=== PATIENT | female | born 1950 | race Two or more races ===

== ENCOUNTER 2023-09-30 09:30 | Inpatient (IN) | payer OTHER ==
[~2023-09-30] VITALS: Ht 162.6 cm; Wt 70.8 kg
[2023-09-30] MEDS ORDERED: SYNTHROID88 MCG PO (15:07)
[2023-09-30] MEDS ORDERED: GLIMEPIRIDE4 MG (15:08)
[2023-09-30] MEDS ORDERED: CITALOPRAM20 MG/10 M PO (15:09)
[2023-09-30] MEDS ORDERED: FENOFIBRATE160 MG PO (15:10)
[2023-10-07] MEDS ORDERED: SIMVASTATIN10 MG (08:32)
[2023-10-07] MEDS ORDERED: LISINOPRIL2.5 MG (08:32)
[2023-10-07 18:26] LABS: HEMATOCRIT 38.6 % (36.0-45.00); HEMOGLOBIN 12.7 g/dL (12.0-15.00); MEAN CELL VOLUME 85.3 fL (80.00-100.00); MEAN CORPUSCULAR HGB CONC 32.8 g/dl (32.0-36.0); PLATELET COUNT 275 K/uL (150-450); RED BLOOD COUNT 4.53 M/uL (4.00-6.00); RED CELL DISTRIBUTION WIDTH 12.9 % (11.5-14.5)
[2023-10-08 08:27] LABS: HEMATOCRIT 36.5 % (36.0-45.00); HEMOGLOBIN 12.1 g/dL (12.0-15.00); MEAN CELL VOLUME 86.9 fL (80.00-100.00); MEAN CORPUSCULAR HEMOGLOBIN 28.8 pg (27.00-32.0); MEAN CORPUSCULAR HGB CONC 33.2 g/dl (32.0-36.0); PLATELET COUNT 240 K/uL (150-450); RED BLOOD COUNT 4.21 M/uL (4.00-6.00); RED CELL DISTRIBUTION WIDTH 12.6 % (11.5-14.5)
[2023-10-08 08:42] LABS: ALBUMIN 3.1 gm/dL (3.4-5.0); CALCIUM 8.6 mg/dL (8.5-10.1); CREATININE SERUM 0.98 mg/dL (0.55-1.02); GFR 55.94; MAGNESIUM 2.1 mg/dL (1.8-2.4); PHOSPHOROUS 2.8 mg/dL (2.5-4.9); POTASSIUM 4.17 mEq/L (3.5-5.1)
== END 2023-10-09 12:54 | disposition home or self-care (01) | DRG 330 ==
LOC: EDUNIT# 09:30 → O/R 10-07 05:45 → SURG 10-07 09:30
PROVIDERS: ADMIT Colon & Rectal Surgery; ATTEND Colon & Rectal Surgery
PROC: 0DBP4ZZ Excision of Rectum, Percutaneous Endoscopic Approach (ICD-10-PCS; 2023-10-07)
PROC: 0TQB4ZZ Repair Bladder, Percutaneous Endoscopic Approach (ICD-10-PCS; 2023-10-07)
PROC: 0DUU47Z Supplement Omentum with Autologous Tissue Substitute, Percutaneous Endoscopic Approach (ICD-10-PCS; 2023-10-07)
PROC: 0DJD8ZZ Inspection of Lower Intestinal Tract, Via Natural or Artificial Opening Endoscopic (ICD-10-PCS; 2023-10-07)
PROC: 0DTN4ZZ Resection of Sigmoid Colon, Percutaneous Endoscopic Approach (ICD-10-PCS; principal; 2023-10-07 10:15)
DX: K57.20 Diverticulitis of large intestine with perforation and abscess without bleeding (principal); N32.1 Vesicointestinal fistula; K66.0 Peritoneal adhesions (postprocedural) (postinfection)

== ENCOUNTER 2023-09-30 11:16 | Outpatient (CLI) | payer OTHER ==
[2023-09-30 12:59] LABS: HEMATOCRIT 38.8 % (36.0-45.00); HEMOGLOBIN 13.4 g/dL (12.0-15.00); MEAN CELL VOLUME 84.1 fL (80.00-100.00); MEAN CORPUSCULAR HEMOGLOBIN 28.9 pg (27.00-32.0); MEAN CORPUSCULAR HGB CONC 34.4 g/dl (32.0-36.0); PLATELET COUNT 321 K/uL (150-450); RED BLOOD COUNT 4.61 M/uL (4.00-6.00)
[2023-09-30 13:19] LABS: URINE BILIRRUBIN NEGATIVE (NEGATIVE); URINE BLOOD MODERATE; URINE GLUCOSE NEGATIVE (NEGATIVE); URINE LEUKOCYTE LARGE; URINE NITRATE POSITIVE; URINE PROTEIN TRACE (NEGATIVE); URINE UROBILINOGEN 0.2 E.U./dl
[2023-09-30 13:29] LABS: INR 0.98; PARTIAL THROMBOPLASTIN TIME 25.5 SECONDS (22.0-34.0); PROTHROMBIN TIME 10.3 SECONDS (9.0-11.5)
[2023-09-30 13:33] LABS: URINE APPEARANCE TURBID; URINE COLOR YELLOW
[2023-09-30 13:34] LABS: URINE BACTERIA MANY; URINE CRYSTALS FEW /HPF; URINE RBC 36-50 /HPF; URINE WBC 21-30 /hpf
[2023-09-30 13:37] LABS: ALBUMIN 3.8 gm/dL (3.4-5.0); BILIRUBIN TOTAL 0.43 mg/dL (0.3-1.2); CALCIUM 9.5 mg/dL (8.5-10.1); CREATININE SERUM 0.8 mg/dL (0.55-1.02); GFR 70.71; GLOBULINA 3.2 G/DL (2.4-3.5); POTASSIUM 4.86 mEq/L (3.5-5.1)
[2023-09-30] MEDS ORDERED: SYNTHROID88 MCG PO (15:07)
[2023-09-30] MEDS ORDERED: GLIMEPIRIDE4 MG (15:08)
[2023-09-30] MEDS ORDERED: CITALOPRAM20 MG/10 M PO (15:09)
[2023-09-30] MEDS ORDERED: FENOFIBRATE160 MG PO (15:10)
== END 2023-09-30 11:17 | disposition home or self-care (01) ==
LOC: LAB 11:16
PROVIDERS: ATTEND Colon & Rectal Surgery
DX: N32.1 Vesicointestinal fistula (principal)